=== PATIENT | female | born 1955 | race African-American/Black ===

== ENCOUNTER 2017-09-29 18:52 | Emergency (ER) | payer MEDICAID ==
[~2017-09-29] VITALS: Ht 170.2 cm; Wt 84.8 kg
[~2017-09-29 18:52] MED LIST: ACETAMINOPHEN-1 EAC1 ORAL; FUROSEMIDE40 MG ORAL; IBUPROFEN600 MG ORAL; KEFLEX500 MG ORAL; LASIX20 M1 PO; MACROBID100 MG ORAL; POTASSIUM CHLO10 ME3 PO
[2017-09-29] MEDS ORDERED: NKM (19:07)
[2017-09-29] MEDS ORDERED: Furosemide 40mg tab ORAL ONE (19:30)
[2017-09-29] MEDS ORDERED: LASIX20 M1 ORAL (20:01)
[2017-09-29] MEDS ORDERED: TYLENOL EXTRA500 MG ORAL (20:01)
[2017-09-29 20:08] VITALS: BP 131/82
[2017-09-29 20:09] VITALS: BP 110/57
--- NOTE | 2017-10-01 07:20 | Emergency Room Report ---
History of Present Illness General Chief Complaint: General Complaint Source: Patient Present Illness HPI 62-year-old female presents ED complaining of back pain and leg pain. Patient notes having intermittent back pain on and off for the last several weeks. Throbbing, 5/10, nonradiating. Worse with bending and twisting. Denies any bowel or bladder incontinence. Denies any leg or motor weakness. Also complaining of bilateral leg swelling. Denies any pain. Denies any chest pain or shortness of breath. Denies any fevers or chills. No other aggravating relieving factors. Denies any other associated symptoms Allergies: Coded Allergies: CODEINE (Verified Allergy, Unknown, 09/29/17) Patient History Past Medical History: asthma Past Surgical History: none Pertinent Family History: none Social History: Denies: smoking, alcohol use, drug use Last Menstrual Period: Post Immunizations: UTD Reviewed Nursing Documentation: PMH: Agreed, PSxH: Agreed Nursing Documentation-PMH Hx Asthma: Yes Review of Systems All Other Systems: negative except mentioned in HPI Physical Exam Vital Signs Date Time Temp Pulse Resp B/P (MAP) Pulse Ox O2 Delivery O2 Flow Rate FiO2 09/29/17 19:00 97.7 74 16 110/57 99 Room Air 97.7 Sp02 EP Interpretation: reviewed, normal General Appearance: no apparent distress, alert, GCS 15, non-toxic Head: normocephalic Eyes: bilateral eye normal inspection, bilateral eye PERRL ENT: normal ENT inspection Neck: normal inspection Respiratory: normal inspection Cardiovascular #1: normal inspection Gastrointestinal: normal inspection Rectal: deferred Genitourinary: no CVA tenderness Musculoskeletal: swelling - 1+ pitting edema b/l LE, tender - paraspinal lumbar tenderness Neurologic: alert, oriented x3, responsive, motor strength/tone normal, sensory intact, speech normal Psychiatric: normal inspection Skin: normal inspection Lymphatic: normal inspection Medical Decision Making Diagnostic Impression: Primary Impression: Edema Qualified Codes: R60.9 - Edema, unspecified Additional Impression: Back pain Qualified Codes: M54.5 - Low back pain ER Course Hospital Course 62-year-old female presents ED complaining of lower back pain. No evidence of trauma. c/o bilateral LE swelling Differential diagnoses include: pyelonephritis, kidney stone, muscle strain, Lspine fracture Clinical course Patient placed on stretcher. After initial history, physical exam reveals elderly female in no acute distress. There is no vertebral body tenderness. There is some mild paraspinal lumbar tenderness. There is 1+ pitting edema in bilateral lower extremities. Lungs clear. Reviewed EMR patient has been here previously for workup of her pedal edema. Lab work showed no evidence of CHF. Chest x-ray clear. Patient was subsequently discharged on Lasix Patient states she is not taking Lasix at this time. I will provide her with a refill of her Lasix but recommend close followup with PMD. Diagnosis - back pain, edema Stable and discharged to home with prescription for Tylenol, Lasix. Followup with PMD. Return to ED if symptoms recur or worsen Last Vital Signs Date Time Temp Pulse Resp B/P (MAP) Pulse Ox O2 Delivery O2 Flow Rate FiO2 09/29/17 20:09 97.7 16 110/57 99 Room Air 207.9 09/29/17 20:08 74 Status: improved Disposition: HOME, SELF-CARE Condition: Stable Scripts Acetaminophen* (TYLENOL EXTRA STRENGTH*) 500 Mg Tablet 500 MG ORAL Q8H Y for Prn Headache/Temp > 101, #30 TAB 0 Refills Prov: CRISTINA OCASIO M.D. 09/29/17 Furosemide* (LASIX*) 20 Mg Tablet 20 MG ORAL DAILY, #10 TAB Prov: CRISTINA OCASIO M.D. 09/29/17 Referrals: NON PHYSICIAN (PCP) Patient Instructions: Edema, [id number] CRISTINA OCASIO M.D. Oct 01, 2017 07:20
== END 2017-09-29 20:14 | disposition home or self-care (01) ==
LOC: EMR 20:07
DX: R60.0 Localized edema (principal); M54.5 Low back pain; Z88.5 Allergy status to narcotic agent; J45.909 Unspecified asthma, uncomplicated
CPT/HCPCS: 99283

== ENCOUNTER 2018-03-08 20:11 | Emergency (ER) | payer MEDICAID ==
[~2018-03-08] VITALS: Ht 170.2 cm; Wt 89.4 kg
[~2018-03-08 20:11] MED LIST changes: +LASIX20 M1 ORAL; +NKM; +TYLENOL EXTRA500 MG ORAL
[2018-03-08 20:55] VITALS: BP 124/50
[2018-03-08 21:09] LABS: BASOPHILS % (AUTO) 0.9 % (0.0-2.0); EOSINOPHILS % (AUTO) 3.6 % (0.0-3.0); HEMATOCRIT 33.7 % (37.0-47.0); HEMOGLOBIN 10.7 G/DL (12.0-16.0); LYMPHOCYTES % (AUTO) 34.4 % (20.0-45.0); MEAN CORPUSCULAR VOLUME 79 FL (80-99); MONOCYTES % (AUTO) 10.9 % (1.0-10.0); NEUTROPHILS % (AUTO) 50.1 % (45.0-75.0); PLATELET COUNT 181 K/UL (150-450); RED BLOOD COUNT 4.25 M/UL (4.20-5.40); RED CELL DISTRIBUTION WIDTH 12.6 % (11.6-14.8); WHITE BLOOD COUNT 7.1 K/UL (4.8-10.8)
[2018-03-08 21:19] LABS: ANION GAP 6 mmol/L (5-15); BLOOD UREA NITROGEN 17 mg/dL (7-18); CALCIUM 8.5 MG/DL (8.5-10.1); CARBON DIOXIDE 28 MMOL/L (21-32); CHLORIDE 105 MMOL/L (98-107); CREATININE 1.1 MG/DL (0.55-1.30); SODIUM 139 MMOL/L (136-145)
[2018-03-08 21:50] LABS: ALANINE AMINOTRANSFERASE 17 U/L (12-78); ALBUMIN 3.3 G/DL (3.4-5.0); ALBUMIN/GLOBULIN RATIO 0.8 (1.0-2.7); ALKALINE PHOSPHATASE 69 U/L (46-116); ASPARTATE AMINO TRANSFERASE 14 U/L (15-37); BILIRUBIN,TOTAL 0.2 MG/DL (0.2-1.0); CKMB < 0.5 NG/ML (0.0-3.6); CREATINE KINASE 71 U/L (26-308)
[2018-03-08] MEDS ORDERED: CEPHALEXIN500 MG ORAL (22:04)
[2018-03-08] MEDS ORDERED: BACTROBAN CR1 APPLIC TOPIC (22:04)
[2018-03-08] MEDS ORDERED: FUROSEMIDE40 MG ORAL (22:04)
[2018-03-08 22:17] VITALS: BP 127/56
[2018-03-08 22:22] VITALS: BP 127/56
--- NOTE | 2018-03-08 22:23 | Emergency Room Report ---
History of Present Illness General Chief Complaint: Edema Source: Patient Present Illness HPI 62-year-old female presents ED complaining of swelling and blisters to her legs. Started approximately 3 days ago. Denies any pain. States she does take 20 mg of Lasix every day for swelling in her legs. Denies chest pain or shortness of breath. Denies fevers or chills. No other aggravating relieving factors. Denies any other associated symptoms Allergies: Coded Allergies: CODEINE (Verified Allergy, Unknown, 09/29/17) Patient History Past Medical History: HTN, asthma Past Surgical History: none Pertinent Family History: none Social History: Denies: smoking, alcohol use, drug use Now: No Immunizations: UTD Reviewed Nursing Documentation: PMH: Agreed; PSxH: Agreed Nursing Documentation-PMH Hx Asthma: Yes Review of Systems All Other Systems: negative except mentioned in HPI Physical Exam Vital Signs Date Time Temp Pulse Resp B/P (MAP) Pulse Ox O2 Delivery O2 Flow Rate FiO2 03/08/18 20:17 98.4 65 18 115/62 96 Room Air 98.4 Sp02 EP Interpretation: reviewed, normal General Appearance: no apparent distress, alert, GCS 15, non-toxic Head: normocephalic, atraumatic Eyes: bilateral eye normal inspection, bilateral eye PERRL ENT: hearing grossly normal, normal pharynx, no angioedema, normal voice Neck: full range of motion, supple/symm/no masses Respiratory: chest non-tender, lungs clear, normal breath sounds, speaking full sentences Cardiovascular #1: regular rate, rhythm, no edema Cardiovascular #2: 2+ carotid (R), 2+ carotid (L), 2+ radial (R), 2+ radial (L) , 2+ dorsalis pedis (R), 2+ dorsalis pedis (L) Gastrointestinal: normal bowel sounds, non tender, soft, non-distended, no guarding, no rebound Rectal: deferred Genitourinary: normal inspection, no CVA tenderness Musculoskeletal: back normal, gait/station normal, normal range of motion, non- tender, swelling - 1+ pitting edema b/l LEs Neurologic: alert, oriented x3, responsive, motor strength/tone normal, sensory intact, speech normal Psychiatric: judgement/insight normal, memory normal, mood/affect normal, no suicidal/homicidal ideation Reflexes: 3+ bicep (R), 3+ bicep (L), 3+ tricep (R), 3+ tricep (L), 3+ knee (R) , 3+ knee (L) Skin: normal color, no rash, warm/dry, well hydrated, rash - dark, plaque like rash noted to bilateral feet/legs Lymphatic: no adenopathy Medical Decision Making Diagnostic Impression: Primary Impression: Rash and nonspecific skin eruption Additional Impression: Edema Qualified Codes: R60.9 - Edema, unspecified ER Course Hospital Course 62-year-old female presents ED complaining of leg swelling, rash to legs Differential diagnoses include: CHF, cellulitis, pedal edema Clinical course Patient placed on stretcher. After initial history and physical I ordered labs , EKG, chest x-ray. labs reviewed- all electrolytes normal, troponins negative, no leukocytosis, hemoglobin/hematocrit stable EKG - NSR, no acute ischemic changes interpreted by me Chest x-ray-no cardiomegaly, no rib fracture, no pneumothorax, no acute process On exam there is evidence of a plaque-like blister on both legs and feet. Possible psoriasis versus eczema. Recommend follow-up with dermatology. We'll prescribe antibiotics. I will increase patient's Lasix dose to 40 mg. Recommend close follow-up with PMD I. I feel this is a highly complex case requiring extensive working including EKG/Rhythm strip, Xray/CT/US, Blood/urine lab work, repeat exams while in ED, and administration of strong opiates/narcotics for pain control, admission to hospital or close patient follow up. Diagnosis - rash, edema Stable and discharged to home with Rx Keflex, lasix, bactroban. Instructed to followup with PMD. Return to ED if symptoms recur or worsen Labs Test 03/08/18 20:50 White Blood Count 7.1 K/UL (4.8-10.8) Red Blood Count 4.25 M/UL (4.20-5.40) Hemoglobin 10.7 G/DL (12.0-16.0) Hematocrit 33.7 % (37.0-47.0) Mean Corpuscular Volume 79 FL (80-99) Mean Corpuscular Hemoglobin 25.3 PG (27.0-31.0) Mean Corpuscular Hemoglobin Concent 31.9 G/DL (32.0-36.0) Red Cell Distribution Width 12.6 % (11.6-14.8) Platelet Count 181 K/UL (150-450) Mean Platelet Volume 9.4 FL (6.5-10.1) Neutrophils (%) (Auto) 50.1 % (45.0-75.0) Lymphocytes (%) (Auto) 34.4 % (20.0-45.0) Monocytes (%) (Auto) 10.9 % (1.0-10.0) Eosinophils (%) (Auto) 3.6 % (0.0-3.0) Basophils (%) (Auto) 0.9 % (0.0-2.0) Sodium Level 139 MMOL/L (136-145) Potassium Level 4.0 MMOL/L (3.5-5.1) Chloride Level 105 MMOL/L (98-107) Carbon Dioxide Level 28 MMOL/L (21-32) Anion Gap 6 mmol/L (5-15) Blood Urea Nitrogen 17 mg/dL (7-18) Creatinine 1.1 MG/DL (0.55-1.30) Estimat Glomerular Filtration Rate > 60 mL/min (>60) Glucose Level 104 MG/DL (74-106) Calcium Level 8.5 MG/DL (8.5-10.1) Total Bilirubin 0.2 MG/DL (0.2-1.0) Aspartate Amino Transf (AST/SGOT) 14 U/L (15-37) Alanine Aminotransferase (ALT/SGPT) 17 U/L (12-78) Alkaline Phosphatase 69 U/L (46-116) Total Creatine Kinase 71 U/L (26-308) Creatine Kinase MB < 0.5 NG/ML (0.0-3.6) Creatine Kinase MB Relative Index 0.7 Troponin I 0.000 ng/mL (0.000-0.056) Pro-B-Type Natriuretic Peptide 223 pg/mL (0-125) Total Protein 7.2 G/DL (6.4-8.2) Albumin 3.3 G/DL (3.4-5.0) Globulin 3.9 g/dL Albumin/Globulin Ratio 0.8 (1.0-2.7) EKG Diagnostic Results Rate: bradycardiac Rhythm: NSR ST Segments: no acute changes ASA given to the pt in ED: No Rhythm Strip Diag. Results EP Interpretation: yes Rhythm: NSR, no PVC's, no ectopy Chest X-Ray Diagnostic Results Chest X-Ray Diagnostic Results : Chest X-Ray Ordered: Yes # of Views/Limited/Complete: 1 View Indication: Other - leg swelling EP Interpretation: Yes Interpretation: no consolidation, no effusion, no pneumothorax, no acute cardiopulmonary disease Impression: No acute disease Electronically Signed by: Electronically signed by Rik Wilson MD Last Vital Signs Date Time Temp Pulse Resp B/P (MAP) Pulse Ox O2 Delivery O2 Flow Rate FiO2 03/08/18 22:22 98.4 52 18 127/56 100 Room Air 98.4 Status: improved Disposition: HOME, SELF-CARE Condition: Stable Scripts Mupirocin Calcium (Bactroban) 15 Gm Cream..g. 1 APPLIC TOPIC THREE TIMES A DAY, #15 GM Prov: Rik iWlson MD 03/08/18 Cephalexin* (KEFLEX*) 500 Mg Capsule 500 MG ORAL EVERY 6 HOURS for 7 Days, CAP Prov: Rik Wilson MD 03/08/18 Furosemide* (LASIX*) 40 Mg Tablet 40 MG ORAL DAILY, #30 TAB Prov: Rik Wilson MD 03/08/18 Patient Instructions: Edema Rik Wilson MD Mar 08, 2018 22:23
--- NOTE | 2018-03-09 12:42 | Diagnostic Imaging Report ---
Indication: Shortness of breath Technique: XRAY Chest 1v Comparison: 03/02/2016 Findings: Unchanged linear atelectasis or scarring at the left base. Otherwise no focal consolidation, pleural effusion or pneumothorax. Heart size and mediastinal contours stable. Degenerative changes of the spine and shoulder. No acute osseous abnormality. Impression: No radiographic evidence of acute cardiopulmonary disease. Unchanged mild linear atelectasis or scarring at the left base.
--- NOTE | 2018-03-09 14:00 | Cardiology Report ---
APPROVED REPORT EKG Measurement Heart [id number] Sinus bradycardia Otherwise normal ECG
== END 2018-03-08 22:44 | disposition home or self-care (01) ==
LOC: EMR 21:29
DX: R60.9 Edema, unspecified (principal); R21 Rash and other nonspecific skin eruption; I10 Essential (primary) hypertension; J45.909 Unspecified asthma, uncomplicated; Z88.6 Allergy status to analgesic agent
CPT/HCPCS: 36415; 71045; 80053; 82550; 82553; 83880; 84484; 85025; 93005; 99283